=== PATIENT | female | born 1940 | race Caucasian/White ===

== ENCOUNTER 2017-04-05 20:37 | Emergency (ER) | payer MEDICARE, OTHER ==
[~2017-04-05] VITALS: Ht 172.7 cm; Wt 88.9 kg
[2017-04-05 20:50] VITALS: BP 165/67; PULSE 56; RESP 18; TEMP 97.3; O2SAT 96
[2017-04-05] MEDS ORDERED: LISI40TA PO (21:37)
[2017-04-05] MEDS ORDERED: MULTTAB67 PO (21:37)
[2017-04-05] MEDS ORDERED: ASPI81CH6 CHEW (21:37)
[2017-04-05] MEDS ORDERED: LIPI40TA PO (21:37)
[2017-04-05] MEDS ORDERED: ATEN25TA PO (21:37)
[2017-04-05] MEDS ORDERED: FISHCAP4 PO (21:37)
[2017-04-05] MEDS ORDERED: CHLO25TA2 PO (21:37)
[2017-04-05] MEDS ORDERED: METF850T PO (21:37)
[2017-04-05] MEDS ORDERED: ONDANSETRON HCL 4 MG/2 ML VIAL IVP ONE (21:45)
--- NOTE | 2017-04-05 21:45 | PD ---
HPI Chief Complaint: Dizziness Time Seen by Provider: 21:29 Travel History International Travel<30 days: No Contact w/Intl Traveler<30days: No Traveled to known affect area: No History of Present Illness HPI The patient was seen and examined in the presence of the nurse. This patient complains of dizziness and lightheadedness. She denies a room spinning vertigo or sensation of movement. She has no headache or head injury. No other neurologic complaint. She has some nausea. She vomited on the way over. No diarrhea or abdominal pain. Symptoms severity is moderate. Duration is 5 hours. No alleviating factors. No exacerbating factors PFSH Past Medical History Hx Anticoagulant Therapy: Yes (ASA) Cancer: Yes (BREAST) Cardiovascular Problems: Yes (HTN) High Cholesterol: Yes Diabetes: Yes Patient Takes Glucophage: Yes Diminished Hearing: Yes ([place]) Hypertension: Yes Immunizations Current: Yes Tetanus Vaccination: Unknown Influenza Vaccination: Yes ?: Not : 2 Para: 2 Tubal Ligation: Yes Past Surgical History Cholecystectomy: Yes Oral Surgery: Yes Other Surgery: Yes (LUMPECTOMY LEFT BREAST) Social History Alcohol Use: Yes Tobacco Use: No (QUIT 1986) Substance Use: No Allergies-Medications (Allergen,Severity, Reaction): Coded Allergies: Sulfa (Sulfonamide Antibiotics) (Verified Allergy, Mild, RASH, 04/05/17) Reported Meds & Prescriptions Reported Meds & Active Scripts Active Zofran (Ondansetron HCl) 4 Mg Tab 4 Mg PO Q6HR PRN Reported Aspirin Low Dose (Aspirin) 81 Mg Chew 81 Mg CHEW DAILY Fish Oil + D3 (Fish Oil-Cholecalciferol) 1,200-1,000 Mg-Unit Cap 1 Cap PO DAILY Multiple Vitamin 1 Tab 1 Tab PO DAILY Chlorthalidone 25 Mg Tab 12.5 Mg PO BID Atenolol 25 Mg Tab 12.5 Mg PO BID Lipitor (Atorvastatin Calcium) 40 Mg Tab 40 Mg PO HS Lisinopril 40 Mg Tab 40 Mg PO BID Metformin (Metformin HCl) 850 Mg Tab 425 Mg PO BIDPC Review of Systems General / Constitutional: No: Fever Eyes: No: Visual changes HENT: Positive: Lightheadedness, No: Headaches Cardiovascular: No: Chest Pain or Discomfort Respiratory: No: Shortness of Breath Gastrointestinal: Positive: Nausea, Vomiting, No: Abdominal Pain Genitourinary: No: Dysuria Musculoskeletal: No: Pain Skin: No Rash Neurologic: Positive: Dizziness, No: Weakness Psychiatric: No: Depression Endocrine: No: Polydipsia Hematologic/Lymphatic: No: Easy Bruising Physical Exam Narrative GENERAL: Well-nourished, well-developed patient in no apparent distress. SKIN: Focused skin assessment reveals no rash and nodules. Skin is Warm and dry. HEAD: Atraumatic. Normocephalic. EYES: Pupils equal and round. No scleral icterus. No injection or drainage. ENT: No nasal bleeding or discharge. Mucous membranes pink and moist. NECK: Trachea midline. No JVD. CARDIOVASCULAR: Regular rate and rhythm. No murmur appreciated. RESPIRATORY: No accessory muscle use. Clear to auscultation. Breath sounds equal bilaterally. GASTROINTESTINAL: Abdomen soft, non-tender, nondistended. Hepatic and splenic margins not palpable. MUSCULOSKELETAL: No obvious deformities. No clubbing. No cyanosis. No edema. NEUROLOGICAL: Awake and alert. No obvious cranial nerve deficits. Motor grossly within normal limits. Normal speech. PSYCHIATRIC: Appropriate mood and affect; insight and judgment normal. Data Data Last Documented VS Vital Signs Date Time Temp Pulse Resp B/P (MAP) Pulse Ox O2 Delivery O2 Flow Rate FiO2 04/05/17 21:37 67 16 95 Room Air 04/05/17 20:50 97.3 165/67 (99) Orders Orders Iv Access Insert/Monitor (04/05/17 21:41) Complete Blood Count With Diff (04/05/17 21:41) Basic Metabolic Panel (Bmp) (04/05/17 21:41) Ondansetron Inj (Zofran Inj) (04/05/17 21:45) Labs Laboratory Tests Test 04/05/17 21:50 White Blood Count 10.0 TH/MM3 Red Blood Count 4.47 MIL/MM3 Hemoglobin 12.8 GM/DL Hematocrit 39.3 % Mean Corpuscular Volume 87.9 FL Mean Corpuscular Hemoglobin 28.5 PG Mean Corpuscular Hemoglobin Concent 32.5 % Red Cell Distribution Width 13.5 % Platelet Count 202 TH/MM3 Mean Platelet Volume 7.6 FL Neutrophils (%) (Auto) 82.1 % Lymphocytes (%) (Auto) 12.7 % Monocytes (%) (Auto) 4.6 % Eosinophils (%) (Auto) 0.3 % Basophils (%) (Auto) 0.3 % Neutrophils # (Auto) 8.2 TH/MM3 Lymphocytes # (Auto) 1.3 TH/MM3 Monocytes # (Auto) 0.5 TH/MM3 Eosinophils # (Auto) 0.0 TH/MM3 Basophils # (Auto) 0.0 TH/MM3 CBC Comment DIFF FINAL Differential Comment Blood Urea Nitrogen 16 MG/DL Creatinine 0.73 MG/DL Random Glucose 238 MG/DL Calcium Level 8.8 MG/DL Sodium Level 135 MEQ/L Potassium Level 3.4 MEQ/L Chloride Level 99 MEQ/L Carbon Dioxide Level 24.4 MEQ/L Anion Gap 12 MEQ/L Estimat Glomerular Filtration Rate 77 ML/MIN MDM Medical Decision Making Medical Screen Exam Complete: Yes Emergency Medical Condition: Yes Medical Record Reviewed: Yes Differential Diagnosis Electrolyte abnormality, vertigo, labyrinthitis Narrative Course I have reviewed the patient's electronic medical record. Etiology of her lightheadedness is unclear from history and physical. Accu-Chek 219 She is neurologically intact No sign of CVA IV placed CBC is normal Metabolic profile shows minor hyperglycemia otherwise normal I gave her IV Zofran Etiology of her symptoms is unclear. She looks clinically well normal vital signs in no acute findings on exam She denies vertigo No indication for brain CT, no injury or headache or neurologic deficit Symptoms seem more global I prescribe her some Zofran. I think she can follow-up with primary physician. If she worsens or develops any acute neurologic deficit she will return promptly Diagnosis Primary Impression: Dizziness Additional Impression: Nausea & vomiting Qualified Codes: R11.2 - Nausea with vomiting, unspecified Additional Instructions: The patient was advised to follow up with their physician and return if they worsen. Med/Other Pt SpecificInfo: Prescription(s) given Scripts Ondansetron (Zofran) 4 Mg Tab 4 MG PO Q6HR Y for NAUSEA OR VOMITING, #12 TAB 0 Refills Prov: Saurav Sher MD 04/05/17 Disposition: 01 DISCHARGE HOME Condition: Stable Saurav Sher MD Apr 05, 2017 21:45
[2017-04-05 22:10] LABS: AUTOMATED NEUTROPHIL # 8.2 TH/MM3 (1.8-7.7); BASOPHIL % 0.3 % (0.0-2.0); EOSINOPHIL % 0.3 % (0.0-4.0); HEMATOCRIT 39.3 % (35.0-46.0); HEMOGLOBIN 12.8 GM/DL (11.6-15.3); LYMPH % 12.7 % (9.0-44.0); LYMPHOCYTE # 1.3 TH/MM3 (1.0-4.8); MEAN CELL VOLUME 87.9 FL (80.0-100.0); MEAN CORPUSCULAR HEMOGLOBIN 28.5 PG (27.0-34.0); MEAN CORPUSCULAR HGB CONC 32.5 % (32.0-36.0); MEAN PLATELET VOLUME 7.6 FL (7.0-11.0); MONO % 4.6 % (0.0-8.0); MONOCYTE # 0.5 TH/MM3 (0-0.9); NEUT % 82.1 % (16.0-70.0); PLATELET COUNT 202 TH/MM3 (150-450); RED BLOOD COUNT 4.47 MIL/MM3 (4.00-5.30); RED CELL DISTRIBUTION WIDTH 13.5 % (11.6-17.2)
[2017-04-05 22:20] LABS: CALCIUM 8.8 MG/DL (8.5-10.1)
[2017-04-05 22:21] LABS: BICARBONATE 24.4 MEQ/L (21.0-32.0)
[2017-04-05 22:24] LABS: CREATININE 0.73 MG/DL (0.50-1.00)
[2017-04-05 22:35] VITALS: BP 138/63; PULSE 64; RESP 14; O2SAT 96
[2017-04-05] MEDS ORDERED: ZOFR4TAB PO (22:45)
== END 2017-04-05 23:08 | disposition home or self-care (01) ==
LOC: PHED 20:37
DX: R42 Dizziness and giddiness (principal); R11.2 Nausea with vomiting, unspecified; I10 Essential (primary) hypertension; E78.00 Pure hypercholesterolemia, unspecified; E11.9 Type 2 diabetes mellitus without complications; Z79.01 Long term (current) use of anticoagulants; Z72.89 Other problems related to lifestyle
CPT/HCPCS: 80048; 85025; 96374; 99284; J2405

== ENCOUNTER 2017-04-17 20:41 | Emergency (ER) | payer MEDICARE ==
[~2017-04-17 20:41] MED LIST: ASPI81CH6 CHEW; ATEN25TA PO; CHLO25TA2 PO; FISHCAP4 PO; LIPI40TA PO; LISI40TA PO; METF850T PO; MULTTAB67 PO; ZOFR4TAB PO
[2017-04-17 20:46] VITALS: BP 196/86; PULSE 82; RESP 20; TEMP 97.5; O2SAT 97
[2017-04-17] MEDS ORDERED: NIAC125C PO (20:54)
[2017-04-17] MEDS ORDERED: MAGN400T2 PO (20:54)
--- NOTE | 2017-04-17 21:08 | PD ---
HPI Chief Complaint: Fall Time Seen by Provider: 20:54 Travel History International Travel<30 days: No Contact w/Intl Traveler<30days: No Traveled to known affect area: No History of Present Illness HPI 76yo F with PMH of DM, HTN, sciatica presents to the ED with c/o bilateral elbow pain s/p fall about 45 minutes ago. Pt said the phone was ringing and she rushed to pick it up and turned really fast so she fell on her right elbow but her left elbow also hit the wall. Pt has laceration in right elbow and abrasion on left elbow. She did hit her right hip but denies any pain and able to ambulate after. Denies any head trauma, LOC, chest pain, sob, dizziness, n/v , abdominal pain, focal weakness or numbness. PFSH Past Medical History Hx Anticoagulant Therapy: Yes (ASA) Cancer: Yes (BREAST) Cardiovascular Problems: Yes (HTN) High Cholesterol: Yes Diabetes: Yes Patient Takes Glucophage: Yes Diminished Hearing: Yes ([place]) Hypertension: Yes Immunizations Current: Yes : 2 Para: 2 Tubal Ligation: Yes Past Surgical History Cholecystectomy: Yes Oral Surgery: Yes Other Surgery: Yes (LUMPECTOMY LEFT BREAST) Social History Alcohol Use: Yes Tobacco Use: No (QUIT 1986) Substance Use: No Allergies-Medications (Allergen,Severity, Reaction): Coded Allergies: Sulfa (Sulfonamide Antibiotics) (Verified Allergy, Mild, RASH, 04/17/17) Reported Meds & Prescriptions Reported Meds & Active Scripts Active Reported Niacin 125 Mg Capsule.er 250 Mg PO DAILY Magnesium Oxide 400 Mg Tab 400 Mg PO DAILY Aspirin Low Dose (Aspirin) 81 Mg Chew 81 Mg CHEW DAILY Fish Oil + D3 (Fish Oil-Cholecalciferol) 1,200-1,000 Mg-Unit Cap 1 Cap PO DAILY Multiple Vitamin 1 Tab 1 Tab PO DAILY Chlorthalidone 25 Mg Tab 12.5 Mg PO BID Atenolol 25 Mg Tab 12.5 Mg PO BID Lipitor (Atorvastatin Calcium) 40 Mg Tab 40 Mg PO HS Lisinopril 40 Mg Tab 40 Mg PO BID Metformin (Metformin HCl) 850 Mg Tab 425 Mg PO BIDPC Review of Systems Except as stated in HPI: all other systems reviewed are Neg Physical Exam Narrative GENERAL: 76yo F in mild distress. SKIN: Focused skin assessment warm/dry. HEAD: Atraumatic. Normocephalic. EYES: Pupils equal and round at 3mm bilaterally. EOMI. ENT: No nasal bleeding or discharge. Mucous membranes pink and moist. NECK: No midline cervical spine ttp. CARDIOVASCULAR: Regular rate and rhythm. No murmur appreciated. RESPIRATORY: No accessory muscle use. Clear to auscultation. Breath sounds equal bilaterally. GASTROINTESTINAL: Abdomen soft, non-tender, nondistended. MUSCULOSKELETAL: Right elbow: +2 cm laceration. Radial pulse 2+. Mild ttp. Good ROM. Left elbow: + Abrasion distal humerus with surrounding edema and erythema. Distal pulses intact. NEUROLOGICAL: Awake and alert. No obvious cranial nerve deficits. Motor grossly within normal limits. Normal speech. PSYCHIATRIC: Appropriate mood and affect; insight and judgment normal. Data Data Last Documented VS Vital Signs Date Time Temp Pulse Resp B/P (MAP) Pulse Ox O2 Delivery O2 Flow Rate FiO2 04/17/17 22:45 04/17/17 22:35 83 16 95 Room Air 04/17/17 20:46 97.5 Orders Orders Elbow, Limited (Ap&Lat) (04/17/17 ) Elbow, Limited (Ap&Lat) (04/17/17 ) Tetanus/Diphtheria Tox Adult (Tetanus/Di (04/17/17 21:15) Acetaminophen (Tylenol) (04/17/17 21:15) Lidocaine Pf 1% Inj (Xylocaine-Mpf 1% In (04/17/17 21:30) Ed Discharge Order (04/17/17 22:32) MDM Medical Decision Making Medical Screen Exam Complete: Yes Emergency Medical Condition: Yes Differential Diagnosis Laceration vs. fracture vs. contusion Narrative Course 76yo F here with c/o bilateral elbow pain s/p mechanical fall. Denies any head trauma. Left elbow has abrasion, right elbow has laceration. Neurovascular intact. X ray bilateral elbows negative. Laceration repaired. Tetanus updated. Acetaminophen was cancelled because pt takes it for sciatica. Return precautions given. Procedures Procedure Narrative LACERATION LOCATION: Right elbow LENGTH: 2cm NUMBER OF STITCHES/MONICA: 4 REPAIR: The area of the laceration was prepped with Betadine and sterilely draped. The laceration was infiltrated with 3cc of 1% lidocaine. The wound was copiously irrigated and explored without evidence of foreign body, tendon injury or neurovascular injury. The wound was closed using 5-0 nylon. This was a single layer repair. A sterile dressing was applied. The patient was advised to keep the dressing clean and dry. Patient tolerated the procedure well. Diagnosis Primary Impression: Laceration of elbow Qualified Codes: S51.011A - Laceration without foreign body of right elbow, initial encounter Patient Instructions: General Instructions Departure Forms: Tests/Procedures Additional Instructions: Please follow up with primary care physician or return to the ED for suture removal in 10 days. Please return to the ED earlier if any signs of infection. Med/Other Pt SpecificInfo: No Change to Meds Disposition: 01 DISCHARGE HOME Condition: Stable Pura Colunga Apr 17, 2017 21:08
[2017-04-17] MEDS ORDERED: TETANUS/DIPHTHERIA TOXOID ADULT 0.5 ML VIAL IM ONE (21:15)
[2017-04-17] MEDS ORDERED: ACETAMINOPHEN 500 MG CPLT PO ONE (21:15)
[2017-04-17] MEDS ORDERED: LIDOCAINE HCL 1% 50 ML VIAL INFIL ONE (21:15)
[2017-04-17] MEDS ORDERED: LIDOCAINE HCL 1% PF 30 ML VIAL INFIL ONE (21:30)
--- NOTE | 2017-04-17 22:02 | RADRPT ---
EXAM DATE/TIME: 04/17/2017 21:45 [facility] COMPARISON: No previous studies available for comparison. INDICATIONS : Left elbow laceration after falling today. MEDICAL HISTORY : Hypertension. Diabetes mellitus type II. SURGICAL HISTORY : None. ENCOUNTER: Initial ACUITY: 1 day PAIN SCORE: 0/10 LOCATION: Left posterior elbow. FINDINGS: No definite fractures, or dislocations are identified. No definite lytic or sclerotic lesion is seen . The joint spaces are well maintained. CONCLUSION: Unremarkable study. Hector Jeffery MD on April 17, 2017 at 21:59 Board Certified Radiologist. This report was verified electronically.
--- NOTE | 2017-04-17 22:02 | RADRPT ---
EXAM DATE/TIME: 04/17/2017 21:45 [facility] COMPARISON: No previous studies available for comparison. INDICATIONS : Right elbow laceration after falling today. MEDICAL HISTORY : Hypertension. Diabetes mellitus type II. SURGICAL HISTORY : None. ENCOUNTER: Initial ACUITY: 1 day PAIN SCORE: 0/10 LOCATION: Right posterior elbow. FINDINGS: No definite fractures, or dislocations are identified. No definite lytic or sclerotic lesion is seen . The joint spaces are well maintained. CONCLUSION: Unremarkable study. Hector Jeffery MD on April 17, 2017 at 22:00 Board Certified Radiologist. This report was verified electronically.
[2017-04-17 22:35] VITALS: BP 176/73; PULSE 83; RESP 16; O2SAT 95
== END 2017-04-17 22:45 | disposition home or self-care (01) ==
LOC: PHEFT 20:41
DX: S51.011A Laceration without foreign body of right elbow, initial encounter (principal); S50.312A Abrasion of left elbow, initial encounter; E11.9 Type 2 diabetes mellitus without complications; I10 Essential (primary) hypertension; E78.00 Pure hypercholesterolemia, unspecified; W18.30XA Fall on same level, unspecified, initial encounter; Z23 Encounter for immunization; Z79.82 Long term (current) use of aspirin; Z79.899 Other long term (current) drug therapy
CPT/HCPCS: 12001; 73070; 90471; 90714

== ENCOUNTER 2017-04-26 10:55 | Emergency (ER) | payer MEDICARE ==
[~2017-04-26 10:55] MED LIST changes: +MAGN400T2 PO; +NIAC125C PO; -ZOFR4TAB PO
[2017-04-26 11:00] VITALS: BP 133/60; PULSE 77; RESP 16; O2SAT 96
--- NOTE | 2017-04-26 11:27 | PD ---
HPI . Wound check Chief Complaint: Wound/Suture/Staple Re-Check Time Seen by Provider: 11:23 Travel History International Travel<30 days: No Contact w/Intl Traveler<30days: No Traveled to known affect area: No History of Present Illness HPI Patient presents for suture removal. She reports no problems associated with the wound such as drainage, unusual pain, redness or fever. PFSH Past Medical History Hx Anticoagulant Therapy: Yes (ASA) Cancer: Yes (BREAST) Cardiovascular Problems: Yes (HTN) High Cholesterol: Yes Diabetes: Yes Patient Takes Glucophage: No Diminished Hearing: Yes ([place]) Hypertension: Yes Immunizations Current: Yes Tetanus Vaccination: < 5 Years Influenza Vaccination: Yes ?: Not : 2 Para: 2 Tubal Ligation: Yes Past Surgical History Cholecystectomy: Yes Oral Surgery: Yes Other Surgery: Yes (LUMPECTOMY LEFT BREAST) Social History Alcohol Use: No Tobacco Use: No Substance Use: No Allergies-Medications (Allergen,Severity, Reaction): Coded Allergies: Sulfa (Sulfonamide Antibiotics) (Verified Allergy, Mild, RASH, 04/26/17) Reported Meds & Prescriptions Reported Meds & Active Scripts Active Reported Niacin 125 Mg Capsule.er 250 Mg PO DAILY Magnesium Oxide 400 Mg Tab 400 Mg PO DAILY Aspirin Low Dose (Aspirin) 81 Mg Chew 81 Mg CHEW DAILY Fish Oil + D3 (Fish Oil-Cholecalciferol) 1,200-1,000 Mg-Unit Cap 1 Cap PO DAILY Multiple Vitamin 1 Tab 1 Tab PO DAILY Chlorthalidone 25 Mg Tab 12.5 Mg PO BID Atenolol 25 Mg Tab 12.5 Mg PO BID Lipitor (Atorvastatin Calcium) 40 Mg Tab 40 Mg PO HS Lisinopril 40 Mg Tab 40 Mg PO BID Metformin (Metformin HCl) 850 Mg Tab 425 Mg PO BIDPC Review of Systems Except as stated in HPI: all other systems reviewed are Neg Physical Exam Narrative GENERAL: Awake and alert and in no acute distress. SKIN: Warm and dry. Well-healed laceration over the right olecranon. No evidence of infection such as drainage, redness or. HEAD: Normocephalic/atraumatic. EYES: Pupils are equal. Extraocular movements are intact. NECK: Normal range of motion. CARDIOVASCULAR: Regular rate and rhythm. RESPIRATORY: Nonlabored respirations. MUSCULOSKELETAL: Atraumatic. NEUROLOGICAL: Nonfocal. PSYCHIATRIC: Appropriate mood and affect. Data Data Last Documented VS Vital Signs Date Time Temp Pulse Resp B/P (MAP) Pulse Ox O2 Delivery O2 Flow Rate FiO2 04/26/17 11:00 77 16 133/60 (84) 96 Orders Orders Ed Discharge Order (04/26/17 11:25) MDM Medical Decision Making Medical Screen Exam Complete: Yes Emergency Medical Condition: Yes Differential Diagnosis My differential diagnosis of a wound check includes but is not limited to normal healing, delayed healing, localized wound infection, cellulitis, sepsis Narrative Course This patient presents for suture removal. 4 sutures were removed from the right elbow. Diagnosis Primary Impression: Visit for suture removal Patient Instructions: General Instructions, Stitches Removal (ED) Departure Forms: Tests/Procedures Disposition: 01 DISCHARGE HOME Condition: Stable Adele Conway MD Apr 26, 2017 11:27
== END 2017-04-26 11:29 | disposition home or self-care (01) ==
LOC: PHEFT 10:55
DX: Z48.02 Encounter for removal of sutures (principal)
CPT/HCPCS: 99281